=== PATIENT | male | born 2000 | race Caucasian/White ===

== ENCOUNTER 2023-12-13 10:53 | Emergency (ER) | payer OTHER ==
[~2023-12-13 10:53] MED LIST: Iopamidol 300 61% 100 ML VIAL FS ONE
[2023-12-13] MEDS ORDERED: Morphine 4 MG/ML VIAL ONE (11:25)
[2023-12-13] MEDS ORDERED: Ondansetron PF 4 MG/2 ML Vial ONE (11:41)
[2023-12-13 11:55] LABS: #Basophils 0.1 10x3/uL (0.0-0.2); #Monocytes 0.5 10x3/uL (0.0-1.1); #Neutrophils 5.3 10x3/uL (1.5-8.4); %Basophils 1.5 % (0.0-2.0); %Eosinophils 0.6 % (0.0-6.0); %Monocytes 7.5 % (0.0-10.0); %Neutrophils 74.1 % (40.0-75.0); Hematocrit 28.4 % (38.8-50.0); Hemoglobin 8.8 g/dL (13.5-17.5); Mean Corpuscular Hemoglobin 25.9 pg (27.0-33.0); Mean Corpuscular Volume 83.5 fl (81.2-95.1); Mean Platelet Volume 9.3 fl (7.4-10.4); Platelet Count 670 10x3/uL (150-450); RBC Distribution Width 16.8 % (11.5-14.5); White Blood Cell (WBC) Count 7.2 10x3/uL (3.5-10.5)
[2023-12-13 12:13] LABS: ALT (SGPT) 29 U/L (8-55); AST (SGOT) 22 U/L (5-34); Albumin 3.7 g/dL (3.5-5.0); Alkaline Phosphatase 96 U/L (40-110); Anion Gap 18 mmol/L (10-20); BUN (Urea Nitrogen) 33 mg/dL (8.9-20.6); Bilirubin, Total Less than 0.2 mg/dL (0.2-1.2); Calc. Creatinine Clearance 0 mL/min (70-130); Calcium 9.1 mg/dL (7.8-10.44); Carbon Dioxide 23 mmol/L (22-29); Chloride 99 mmol/L (98-107); Estimated GFR 93; Globulin 2.9 g/dL (2.4-3.5); Lipase 18 U/L (8-78); Potassium 5.7 mmol/L (3.5-5.1); Protein, Total 6.6 g/dL (6.0-8.3); Sodium 134 mmol/L (136-145)
[2023-12-13] MEDS ORDERED: Amoxicillin/Potassium Clav 875 MG TAB ONE (12:17)
[2023-12-13 12:30] LABS: Critical Call Chemistry NUR.PA@1230; Glucose 484 mg/dL (70-105)
[2023-12-13 13:20] LABS: Bilirubin Neg (Negative); Blood, Urine 25 (Negative); Clarity Clear (Clear); Glucose, Urine (Dipstick) >=1000 mg/dL (Negative); Ketone, Urine Negative (Negative); Leukocyte Negative (Negative); Nitrite Negative (Negative); Protein, Urine (Dipstick) 15 mg/dl (Neg-Trace); Urobilinogen Normal mg/dL (Less than 2)
[2023-12-13 13:30] LABS: Anion Gap 17 mmol/L (10-20); BUN (Urea Nitrogen) 33 mg/dL (8.9-20.6); Calc. Creatinine Clearance 0 mL/min (70-130); Calcium 9.3 mg/dL (7.8-10.44); Carbon Dioxide 23 mmol/L (22-29); Chloride 99 mmol/L (98-107); Estimated GFR 97; Potassium 5.6 mmol/L (3.5-5.1); Sodium 133 mmol/L (136-145)
[2023-12-13] MEDS ORDERED: HumaLOG 300 UNITS/3 ML VIAL IVP SCH (13:30)
[2023-12-13] MEDS ORDERED: Insulin Regular 300 UNITS/3 ML VIAL ONE (13:31)
[2023-12-13 13:32] LABS: Glucose 478 mg/dL (70-105)
[2023-12-13 13:59] LABS: Bacteria/HPF Rare-Few HPF (None Seen); CAUTI Indications for Culture Dysuria,urgency,freq; RBC/HPF 0-3 HPF (0-3); Squamous Epithelial None Seen HPF (0-3); WBC/HPF 0-3 HPF (0-3)
[2023-12-13 14:01] LABS: Urine Culture Reflex No No
[2023-12-13 14:11] LABS: Anion Gap 13 mmol/L (10-20); BUN (Urea Nitrogen) 28 mg/dL (8.9-20.6); Calc. Creatinine Clearance 0 mL/min (70-130); Calcium 8.5 mg/dL (7.8-10.44); Carbon Dioxide 23 mmol/L (22-29); Chloride 105 mmol/L (98-107); Estimated GFR 130; Glucose 168 mg/dL (70-105); Potassium 4.1 mmol/L (3.5-5.1); Sodium 137 mmol/L (136-145)
== END 2023-12-13 15:18 | disposition home or self-care (01) ==
LOC: CSHERS 10:53
DX: R19.7 Diarrhea, unspecified (principal); E10.65 Type 1 diabetes mellitus with hyperglycemia; K08.89 Other specified disorders of teeth and supporting structures
CPT/HCPCS: 36415; 36416; 74177; 80053; 81001; 82010; 83690; 85025; J1815; J2270; J2405; Q9967

== ENCOUNTER 2023-12-14 18:45 | Emergency (ER) | payer OTHER ==
[2023-12-14 20:09] LABS: Actual Bicarbonate (HCO3v) 22.6 mEq/L (22-28); Analyzer IN Cardio CS ER; Base Excess -3.5 mEq/L (-2 - +2); Calcium, Ionized (venous) 1.21 mmol/L (1.16-1.32); Chloride (VBG) 102 mmol/L (98-106); Hematocrit-VBG 29 % (42.0-52.0); Potassium (VBG) 4.87 mmol/L (3.70-5.30); Puncture Site Other Site; RapidComm Collect By LAB; Sodium 138 mmol/L (133-146); pH (venous) 7.313 (7.32-7.43)
[2023-12-14 20:29] LABS: Phosphorus 4.5 mg/dL (2.3-4.7)
[2023-12-14 20:33] LABS: ALT (SGPT) 27 U/L (8-55); AST (SGOT) 17 U/L (5-34); Albumin 4.1 g/dL (3.5-5.0); Alkaline Phosphatase 98 U/L (40-110); Anion Gap 16 mmol/L (10-20); BUN (Urea Nitrogen) 33 mg/dL (8.9-20.6); Bilirubin, Total Less than 0.2 mg/dL (0.2-1.2); Calc. Creatinine Clearance 0 mL/min (70-130); Calcium 9.2 mg/dL (7.8-10.44); Carbon Dioxide 22 mmol/L (22-29); Chloride 104 mmol/L (98-107); Estimated GFR 101; Globulin 3.1 g/dL (2.4-3.5); Glucose 185 mg/dL (70-105); Lipase 23 U/L (8-78); Magnesium 2.1 mg/dL (1.6-2.6); Potassium 5.1 mmol/L (3.5-5.1); Protein, Total 7.2 g/dL (6.0-8.3); Sodium 137 mmol/L (136-145)
[2023-12-14 20:37] LABS: #Basophils 0.1 10x3/uL (0.0-0.2); #Eosinphils 0.1 10x3/uL (0.0-0.5); #Monocytes 0.7 10x3/uL (0.0-1.1); #Neutrophils 4.4 10x3/uL (1.5-8.4); %Basophils 1.5 % (0.0-2.0); %Eosinophils 0.8 % (0.0-6.0); %Lymphocytes 30.8 % (18.0-47.0); %Monocytes 9.3 % (0.0-10.0); %Neutrophils 57.3 % (40.0-75.0); Hemoglobin 8.7 g/dL (13.5-17.5); Mean Corpuscular HGB CONC 31.1 g/dL (32.0-36.0); Mean Corpuscular Hemoglobin 25.7 pg (27.0-33.0); Mean Corpuscular Volume 82.6 fl (81.2-95.1); Mean Platelet Volume 9.3 fl (7.4-10.4); Platelet Count 697 10x3/uL (150-450); RBC Distribution Width 17.1 % (11.5-14.5); Red Blood Cell (RBC) Count 3.39 10x6/uL (4.32-5.72); White Blood Cell (WBC) Count 7.8 10x3/uL (3.5-10.5)
[2023-12-14 20:39] LABS: Troponin I Less than 0.010 ng/mL (< 0.028)
[2023-12-14 20:46] LABS: Bilirubin Neg (Negative); Blood, Urine 50 (Negative); Clarity Clear (Clear); Glucose, Urine (Dipstick) >=1000 mg/dL (Negative); Ketone, Urine Negative (Negative); Leukocyte Negative (Negative); Nitrite Negative (Negative); Protein, Urine (Dipstick) 100 mg/dl (Neg-Trace); Urobilinogen Normal mg/dL (Less than 2)
[2023-12-14 21:11] LABS: Bacteria/HPF None Seen HPF (None Seen); CAUTI Indications for Culture Pelvic or flank pain; RBC/HPF 0-3 HPF (0-3); Squamous Epithelial 0-3 HPF (0-3); Urine Culture Reflex No No; WBC/HPF None Seen HPF (0-3)
[2023-12-14] MEDS ORDERED: Sucralfate 1 GM/10 ML UDCUP ONE (21:40)
[2023-12-14] MEDS ORDERED: Pantoprazole 40 MG VIAL ONE (21:40)
== END 2023-12-14 22:17 | disposition home or self-care (01) ==
LOC: CSHERS 18:45
DX: E86.0 Dehydration (principal); R10.9 Unspecified abdominal pain; E10.9 Type 1 diabetes mellitus without complications
CPT/HCPCS: 80053; 81001; 82010; 82805; 83690; 83735; 84100; 84484; 85025; 93005; 96361; 96374; C9113

== ENCOUNTER 2023-12-20 19:30 | Emergency (ER) | payer OTHER ==
[2023-12-20] MEDS ORDERED: Ketorolac Tromethamine 30 MG (1 mL) VIAL ONE (20:32)
[2023-12-20] MEDS ORDERED: Promethazine HCl 12.5 MG in Sodium Chloride 0.9% 50 ML IVPB SCH (20:45)
[2023-12-20 20:46] LABS: #Basophils 0.1 10x3/uL (0.0-0.2); #Eosinphils 0.1 10x3/uL (0.0-0.5); #Monocytes 0.8 10x3/uL (0.0-1.1); #Neutrophils 3.5 10x3/uL (1.5-8.4); %Basophils 2.1 % (0.0-2.0); %Eosinophils 1.8 % (0.0-6.0); %Lymphocytes 29.9 % (18.0-47.0); %Monocytes 12.6 % (0.0-10.0); %Neutrophils 53.4 % (40.0-75.0); Hematocrit 27.8 % (38.8-50.0); Hemoglobin 8.4 g/dL (13.5-17.5); Mean Corpuscular HGB CONC 30.2 g/dL (32.0-36.0); Mean Corpuscular Volume 82.7 fl (81.2-95.1); Mean Platelet Volume 9.9 fl (7.4-10.4); Platelet Count 549 10x3/uL (150-450); Red Blood Cell (RBC) Count 3.36 10x6/uL (4.32-5.72); White Blood Cell (WBC) Count 6.5 10x3/uL (3.5-10.5)
[2023-12-20 20:55] LABS: Acetaminophen Less than 10 mcg/mL (10.0-30.0); Alcohol Less than 10.0 mg/dL (Less than 10); Lipase 37 U/L (8-78); Salicylate Less than 8.0 mg/dL (15.0-30.0)
[2023-12-20 20:56] LABS: ALT (SGPT) 35 U/L (8-55); AST (SGOT) 21 U/L (5-34); Alkaline Phosphatase 99 U/L (40-110); Anion Gap 17 mmol/L (10-20); BUN (Urea Nitrogen) 45 mg/dL (8.9-20.6); Bilirubin, Total Less than 0.2 mg/dL (0.2-1.2); Calc. Creatinine Clearance 0 mL/min (70-130); Calcium 8.9 mg/dL (7.8-10.44); Carbon Dioxide 20 mmol/L (22-29); Chloride 103 mmol/L (98-107); Estimated GFR 80; Globulin 2.8 g/dL (2.4-3.5); Potassium 5.7 mmol/L (3.5-5.1); Protein, Total 6.8 g/dL (6.0-8.3); Sodium 134 mmol/L (136-145)
[2023-12-20 20:57] LABS: Bilirubin Neg (Negative); Blood, Urine 25 (Negative); Clarity Clear (Clear); Glucose, Urine (Dipstick) >=1000 mg/dL (Negative); Ketone, Urine Negative (Negative); Leukocyte Negative (Negative); Nitrite Negative (Negative); Protein, Urine (Dipstick) 30 mg/dl (Neg-Trace); Urobilinogen Normal mg/dL (Less than 2)
[2023-12-20 21:01] LABS: Glucose 411 mg/dL (70-105)
[2023-12-20 21:06] LABS: Bacteria/HPF Rare-Few HPF (None Seen); CAUTI Indications for Culture Pelvic or flank pain; Squamous Epithelial None Seen HPF (0-3); WBC/HPF 0-3 HPF (0-3)
[2023-12-20 21:08] LABS: Urine Culture Reflex No No
[2023-12-20] MEDS ORDERED: fentaNYL 50 mcg/mL 1 mL Vial ONE (21:24)
[2023-12-20] MEDS ORDERED: Insulin Regular 300 UNITS/3 ML VIAL ONE (21:25)
[2023-12-20 21:32] LABS: Amphetamine Not Detected (NotDetected); Barbiturates Screen Not Detected (NotDetected); Benzodiazepine Screen Not Detected (NotDetected); Cocaine Metabolite Screen Detected (NotDetected); Methadone Not Detected (NotDetected); Methamphetamine Not Detected (NotDetected); Opiate Screen Not Detected (NotDetected); Oxycodone Screen Not Detected (NotDetected); Phencyclidine (PCP) Not Detected (NotDetected); THC/Cannabinoid Screen Not Detected (NotDetected); Tricyclic Screen Not Detected (NotDetected)
[2023-12-20] MEDS ORDERED: HYDROcodone/Acetaminophen 10/325 mg Tablet ONE (22:44)
== END 2023-12-20 23:00 | disposition home or self-care (01) ==
LOC: CSHERS 19:30
DX: G89.29 Other chronic pain (principal); R10.9 Unspecified abdominal pain; M54.9 Dorsalgia, unspecified; E86.0 Dehydration; R19.7 Diarrhea, unspecified; E10.9 Type 1 diabetes mellitus without complications
CPT/HCPCS: 36416; 80053; 80306; 80307; 81001; 83690; 85025; 96361; 96374; 96375; 96376; J1815; J1885; J2550; J3010